=== PATIENT | female | born 1990 | race African-American/Black ===

== ENCOUNTER 2017-02-27 21:46 | Emergency (ER) | payer OTHER ==
[~2017-02-27] VITALS: Ht 175.3 cm; Wt 80.0 kg
[2017-02-27 23:54] VITALS: BP 112/64
[2017-02-27] MEDS ORDERED: MORPHINE SULFATE 4 MG/ML CPJ (NOT FOR IM USE) IV STA (23:54)
[2017-02-27] MEDS ORDERED: ONDANSETRON HCL 4MG/2ML VIAL IV STA (23:54)
[2017-02-27] MEDS ORDERED: SODIUM CHLORIDE 0.9% 1,000 ML IV ONE (23:54)
[2017-02-28 00:26] LABS: BASOPHILS % 1.4 % (0.0-2.0); EOSINOPHILS % 2.4 % (0.0-5.0); HEMATOCRIT. 40.9 % (36.0-48.0); HEMOGLOBIN. 13.6 g/dL (12.0-16.0); LYMPHOCYTES % 51.3 % (20.0-50.0); MEAN CORPUSCULAR HEMOGLOBIN 29.5 pg (28.0-32.0); MEAN CORPUSCULAR HGB CONC 33.2 g/dL (31.0-37.0); MEAN CORPUSCULAR VOLUME 88.9 fL (81.0-99.0); MEAN PLATELET VOLUME 9.6 fl (7.4-10.4); MONOCYTES % 5.4 % (2.0-8.0); NEUTROPHILS % 39.5 % (40.0-76.0); PLATELET 239 x1000/uL (130-400); RED BLOOD CELL COUNT 4.61 mill/uL (4.2-5.4); RED CELL DISTRIBUTION WIDTH 12.5 % (11.6-14.6); WHITE BLOOD COUNT 5.8 x1000/uL (4.5-11.0)
[2017-02-28 00:33] LABS: CHLORIDE 104 mEq/L (98-107); INDEX HEMOLYSI 1 (1-3); INDEX ICTERIC 1 (1-4); INDEX LIPEMIC 1 (1-3)
[2017-02-28 00:36] LABS: PARTIAL THROMBOPLASTIN TIME 28.7 sec (24.0-34.0); PROTHROMBIN TIME 10.8 sec
[2017-02-28 00:39] LABS: HCG SCREEN NEGATIVE
[2017-02-28 00:47] LABS: ALANINE AMINOTRANSFERASE 25 IU/L (13-61); ALBUMIN 3.8 g/dL (3.4-5.0); ANION GAP 11; CARBON DIOXIDE 30 mEq/L (21-32); LIPASE 154 IU/L (73-393); UREA NITROGEN BLOOD 17 mg/dL (7-21); eGFR > 60 mL/min (>60)
[2017-02-28 02:53] LABS: CLARITY URINE CLEAR (CLEAR); COLOR URINE YELLOW (YELLOW); GLUCOSE URINE NEGATIVE (NEGATIVE); KETONES URINE NEGATIVE (NEGATIVE); LEUKOCYTE ESTERASE URINE NEGATIVE (NEGATIVE); NITRITE URINE NEGATIVE (NEGATIVE); OCCULT BLOOD URINE NEGATIVE (NEGATIVE); PROTEIN URINE NEGATIVE (NEGATIVE); SPECIFIC GRAVITY URINE 1.046 (1.005-1.030); UROBILINOGEN URINE 0.2 E.U./dL (0.2-1.0)
[2017-02-28] MEDS ORDERED: SODIUM CHLORIDE 0.9% 10ML VIAL ONE (09:53)
[2017-02-28] MEDS ORDERED: IOHEXOL-300 100 ML BOTTLE ONE (09:53)
== END 2017-02-28 03:20 | disposition home or self-care (01) ==
LOC: ER 21:48
DX: R10.9 Unspecified abdominal pain (principal); M79.641 Pain in right hand; J45.909 Unspecified asthma, uncomplicated
CPT/HCPCS: 36415; 74177; 80053; 81003; 83690; 84703; 85025; 85610; 85730; 99285; A4216; Q9967; Z7610; J2270; J2405; J7030

== ENCOUNTER 2022-10-17 18:49 | Emergency (ER) | payer OTHER ==
[~2022-10-17] VITALS: Ht 167.6 cm; Wt 89.0 kg
[2022-10-17 18:53] VITALS: BP 110/60
[2022-10-18] MEDS: ACETAMINOPHEN 325MG TABLET PO NR (01:29)
[2022-10-18] MEDS: ACETAMINOPHEN 325MG TABLET PO STA (01:38)
[2022-10-18] MEDS ORDERED: NAPR-681 PO (05:35)
[2022-10-18] MEDS: NAPROXEN 250MG TABLET PO ONE (05:54)
== END 2022-10-18 05:53 | disposition home or self-care (01) ==
LOC: ER 18:49
DX: S09.8XXA Other specified injuries of head, initial encounter (principal); W22.8XXA Striking against or struck by other objects, initial encounter; Y93.89 Activity, other specified; Y92.89 Other specified places as the place of occurrence of the external cause; Y99.8 Other external cause status; J45.909 Unspecified asthma, uncomplicated
CPT/HCPCS: 81025; 99284